=== PATIENT | male | born 1945 | race Caucasian/White ===

== ENCOUNTER → 2017-06-10 | Outpatient (CLI) | payer OTHER ==
[~2017-06-10] VITALS: Ht 188 cm; Wt 108.9 kg
[~2017-06-10] MED LIST: ASPIR 8181 M1 PO; DAILY MULTIPLE1 EACH PO; FINASTERIDE5 MG PO; FLUOXETINE HCL20 M1 PO; LISINOPRIL10 MG PO
== END | disposition home or self-care (01) ==
LOC: AMB 06-03 10:15
PROC: 0DBL8ZX Excision of Transverse Colon, Via Natural or Artificial Opening Endoscopic, Diagnostic (ICD-10-PCS; principal; 2017-06-10)
DX: Z12.11 Encounter for screening for malignant neoplasm of colon (principal); D12.3 Benign neoplasm of transverse colon; Z86.010 Personal history of colon polyps; K57.30 Diverticulosis of large intestine without perforation or abscess without bleeding; K64.8 Other hemorrhoids; K64.4 Residual hemorrhoidal skin tags
CPT/HCPCS: 88305; 93005